=== PATIENT | male | born 1955 | race Caucasian/White ===

== ENCOUNTER → 2017-10-30 08:49 | Outpatient (CLI) | payer OTHER, SELFPAY ==
--- NOTE | 2017-10-30 09:00 | RAD_ITS ---
STUDY: X-RAY - ABDOMEN/PELVIS REASON FOR EXAM: Male, 62 years old. History of kidney stones. TECHNIQUE: Two AP supine views of the abdomen and pelvis. COMPARISON: Comparison is made with prior study dated January 29, 2015. FINDINGS: Normal visualized lung bases. There is an unremarkable bowel gas pattern. There is no demonstrated free abdominal air. The visualized liver, spleen and kidneys are grossly normal in size and morphology. Normal soft tissue structures. Normal visualized osseous structures. RAD/Abdomen Single View IMPRESSION: Normal x-ray examination of the abdomen and pelvis. Electronically Signed: Jaciel Mathis MD at 15:17 EST Tel [phone], Service support ,
== END ==
PROVIDERS: Visit Provider Nurse Practitioner Adult Health
DX: N20.0 Calculus of kidney (principal); R31.9 Hematuria, unspecified
CPT/HCPCS: 74018; 87086

== ENCOUNTER → 2017-11-02 06:48 | Outpatient (CLI) | payer OTHER, SELFPAY ==
--- NOTE | 2017-11-02 06:51 | CT_ITS ---
STUDY: CT ABDOMEN WITHOUT CONTRAST REASON FOR EXAM: Male, 62 years old. Hematuria. RADIATION DOSAGE (If Supplied By Facility): CTDIvol = ( 21.16 ) mGy, DLP = ( 1120.53 ) mGycm TECHNIQUE: Transaxial images were obtained without intravenous contrast, and without oral contrast. Sagittal and coronal images were reconstructed. Individualized dose optimization techniques were used for this CT. COMPARISON: Comparison is made with prior study dated November 22, 2013. FINDINGS: Stable minimally increased markings at the lung bases. The visualized portions of the heart are within normal limits. There is decreased attenuation of the liver consistent with steatosis. Normal gallbladder and extrahepatic biliary system. Normal spleen. Normal pancreas. Normal bilateral adrenal glands. A punctate calcification is seen in the middle pole calyx of the right kidney. Normal left kidney. Normal visualized stomach. Normal small intestine. There are multiple colonic diverticula consistent with diverticulosis. The appendix is visualized and appears normal. Normal abdominal aorta. Normal inferior vena cava. Normal retroperitoneum. Prostatic calcifications. There is a small umbilical hernia containing fat. Small bilateral nodular areas containing fat. Normal osseous structures. CT/Abdomen without IV Contrast IMPRESSION: Fatty infiltration of the liver. Scattered calcifications in the prostate. Punctate calcification in the right kidney. Electronically Signed: Jaciel Mathis MD at 13:56 EST Tel [phone], Service support ,
== END ==
PROVIDERS: Visit Provider Nurse Practitioner Adult Health
DX: R31.9 Hematuria, unspecified (principal); R10.30 Lower abdominal pain, unspecified; Z87.442 Personal history of urinary calculi
CPT/HCPCS: 74150

== ENCOUNTER → 2017-11-29 11:50 | Outpatient (CLI) | payer OTHER, SELFPAY ==
--- NOTE | 2017-11-29 11:51 | CT_ITS ---
STUDY: CT ABDOMEN AND PELVIS WITH CONTRAST REASON FOR EXAM: Male, 62 years old. Right abdominal pain, rectal bleeding RADIATION DOSAGE (If Supplied By Facility): CTDIvol = ( 18.72 ) mGy, DLP = ( 1279.51 ) mGycm TECHNIQUE: Transaxial images were obtained from the lower chest to the upper thighs with oral contrast. 100 ml of Isovue 300 contrast was administered. Sagittal and coronal images were reconstructed. Individualized dose optimization techniques were used for this CT. COMPARISON: November 02, 2017 FINDINGS: There is minimal dependent atelectasis in both lung bases. There is no pleural effusion. The heart is normal in size. There is diffuse decreased density of the liver. The gallbladder and biliary system are unremarkable. The spleen is unremarkable. The pancreas is unremarkable. The adrenal glands are unremarkable. The right kidney is unremarkable. There is no dilatation of the collecting system in the right kidney. The left kidney is unremarkable. There is no dilatation of the collecting system in the left kidney. The stomach is unremarkable. The small bowel is unremarkable. There are diverticula in the distal colon without adjacent stranding. The appendix is visualized and appears normal. There are minimal vascular calcifications. The inferior vena cava is unremarkable. The retroperitoneum is unremarkable. There is no free fluid in the abdomen. The urinary bladder is decompressed. The prostate measures 5.5 cm in the transverse plane. There are coarse calcifications in the prostate. There are small phleboliths scattered in the lower pelvis. There is herniation of fat in the left inguinal canal. There is minimal herniation of fat at the umbilicus. There are mild degenerative changes in the visualized spine. CT/Abdomen/Pelvis WITH Contrast IMPRESSION: There is diverticulosis of the distal colon. There are no findings to suggest acute diverticulitis. There are no abnormal masses seen in the colon given limited evaluation on CT. There is no ascites, free air, inflammation or significant lymphadenopathy. Again seen is fatty infiltration of the liver. The prostate is prominent in size with coarse calcifications. The prostate extends into the inferior aspect of the bladder. The bladder is decompressed. Electronically Signed: Sangita López MD at 15:26 EDT Tel Direct: [phone], Service support ,
== END ==
PROVIDERS: Visit Provider Family Medicine
DX: K62.5 Hemorrhage of anus and rectum (principal)
CPT/HCPCS: 74177; Q9967

== ENCOUNTER 2020-04-28 18:08 | Emergency (ER) | payer MEDICARE, SELFPAY ==
[2020-04-28 18:09] VITALS: BP 130/86; PULSE 92; RESP 13; O2SAT 97
[2020-04-28 18:10] VITALS: BP 130/86; PULSE 94; RESP 17; TEMP 36.7; O2SAT 98; BMI 36.1
--- NOTE | 2020-04-28 18:28 | ED.DCSUM_ITS ---
History of Present Illness Chief Complaint: Allergic Reaction Informant: Patient Onset: Today Narrative: Patient presents via EMS after bee sting. He was mowing the yard and believes he disturbed a hornet's nest in a tree. He was stung on his stomach and behind his left ear. He states he became very itchy. He went inside and took a cold shower which did not prove his symptoms. He took 50 mg of p.o. Benadryl. He felt like his lips were starting to swell so EMS was called. They gave an additional 25 mg of IV Benadryl and an EpiPen. At this time patient feels like he is improving. Bee sting occurred 2 hours prior to my initial evaluation. - Past Medical History (1) Urolithiasis Status: Chronic (2) HTN (hypertension) Status: Chronic Past Medical History - Allergies and Home Meds Allergies/Adverse Reactions: Allergies bee venom protein (honey bee) Allergy (Verified 04/28/20 18:10) Hives Primary Care Physician: Raghav Jarrett [[facility]] - Prior records reviewed: Yes Surgical History: no surgical history Lives: Spouse/ Significant Other Smoking Status: Never smoker - Family History Maternal Additional Family History: None Review of Systems General: Denies: Chills, Fever Eyes: Denies: Visual changes - bilaterally ENT: Denies: Bilateral ear pain Cardiovascular: Denies: Chest pain Respiratory: Denies: Dyspnea, Cough Gastrointestinal: Denies: Abdominal pain, Nausea, Vomiting Musculoskeletal: Denies: Extremity Pain Skin: Reports: Rash Neurological: Denies: Headache Psych: Denies: Depression Hematologic: Denies: Easy bruising, Easy bleeding Allergy: Reports: Uticaria Physical Exam Vital Signs/Narrative: Vital Signs Temp Pulse Resp BP Pulse Ox 04/28/20 18:10 98.0 F 94 17 130/86 H 98 04/28/20 18:09 92 13 130/86 H 97 Inital Vital Signs reviewed: Yes General: Well nourished, Well developed Head: Normocephalic ENT: Moist mucous membranes, - - No lip or tongue edema noted on exam. Posterior pharynx is clear. Neck: Supple Cardiovascular: Regular rate, Regular rhythm Respiratory: No distress, CTA bilaterally Abdomen: Soft, Nontender Back: Nontender Skin: - - Urticaria noted over the trunk and extremities. Neurological: Alert, Oriented x3 Psychological: Normal affect Diagnostic/Tx/Re-eval - Medical Decision Making Patient was given Benadryl and epinephrine with EMS. On arrival here his symptoms were improving. He was given 125 mg of Solu-Medrol IV. Patient is observed here for a total of 2-1/2 hours. Rash continues to improve. He denies any throat tightness or foreign body sensation. At this time patient be discharged to home. He will be given prescriptions for prednisone as well as an EpiPen. They will continue Benadryl at home. ED Disposition - Plan for ED Patient: Disposition: Home or Assisted Living Diagnosis: Bee sting allergy Instructions: ED BEE STING General Allergic Rxn Prescriptions: Prednisone [Deltasone] 40 mg PO DAILY #10 tab Transmission Status: Pending to [facility] Epi Pen (for allergic rxn) 0.3 mg IM X1 PRN #1 syringe PRN Reason: Anaphylaxis Transmission Status: Pending to [facility] Referrals: Raghav Jarrett [[facility]] -
[2020-04-28] MEDS: MethylPREDNISolone 125 MG/2 ML Vial IV (19:04)
[2020-04-28 21:01] VITALS: BP 135/91; PULSE 71; RESP 16; O2SAT 99
== END 2020-04-28 21:02 | disposition home or self-care (01) ==
PROVIDERS: Emergency Provider Emergency Medicine; PCP Family Medicine
DX: T63.441A Toxic effect of venom of bees, accidental (unintentional), initial encounter (principal); L50.9 Urticaria, unspecified; I10 Essential (primary) hypertension
CPT/HCPCS: 96374; 99285; A4216

== ENCOUNTER → 2021-03-22 16:25 | Outpatient (CLI) | payer MEDICARE, SELFPAY ==
[2021-03-22 18:11] LABS: International Normalized Ratio 1.1; Partial Thromboplast Time 23.7 Seconds (24.1-36.2); Prothrombin Time (Protime)PT. 13.3 SECONDS (11.7-14.9)
[2021-03-25 11:06] LABS: Carbohydrate AG 19-9 4987 U/mL (0-35); Carcinoembryonic Antigen 32.2 ng/mL (0.0-4.7)
== END ==
PROVIDERS: PCP Family Medicine; Referring Provider Internal Medicine Gastroenterology; Visit Provider Internal Medicine Gastroenterology
DX: K86.9 Disease of pancreas, unspecified (principal); R17 Unspecified jaundice
CPT/HCPCS: 36415; 82378; 85610; 85730; 86301

== ENCOUNTER → 2022-09-06 | Outpatient (CLI) | payer MEDICARE, SELFPAY ==
--- NOTE | 2022-09-06 11:00 | PET_ITS ---
EXAMINATION: FDG PET-CT INDICATIONS: A 66-year-old male with a history of pancreatic carcinoma presenting for restaging examination. COMPARISON EXAMINATION: None available TECHNIQUE: Following the intravenous administration of 13.38 mCi of F-18 deoxyglucose via the left antecubital fossa, multiplanar image acquisitions of the head, neck, chest, abdomen and pelvis to level of mid-thigh, lower extremities obtained at one hour post radiopharmaceutical administration contemporaneously interpreted with the current CT of the head, neck, chest, abdomen and pelvis to level of mid-thigh, lower extremities dated 09/06/22 via coregistration reveal: SERUM GLUCOSE LEVEL: 132 mg/dl. HEIGHT: 66 inches. WEIGHT: 187 lbs. FINDINGS: Head/Neck: There is no evidence of abnormal increased glucose metabolism in the pharyngeal mucosal space, parapharyngeal space, bilateral-lateral and anterior neck, hypopharynx and distribution of the laryngeal structures. The visualized portion of the cerebral cortical-subcortical structures demonstrate symmetric and preserved glucose metabolism. CHEST: Prominent tracer concentration is defined in the descending thoracic aorta consistent with activated leukocytes associated with atherosclerotic plaque formation. Pertinent chest CT findings are as follows. There is visualization of the Mabodbqk-Qalu-A-Cath. There is atherosclerotic calcification defined in the thoracic aorta without evidence of dilatation-aneurysm formation. Coronary arterial calcification is observed. Calcified and noncalcified mediastinal thoracic perihilar soft tissue is nonglucose avid. Bilateral subcentimeter axillary soft tissue densities are ametabolic. There are no parenchymal densities-nodules defined in the right and left hemithorax with quantitatively significant increased FDG uptake. Abdomen/Pelvis: Normal physiologic distribution of the radiopharmaceutical is apparent in the hepatic and splenic parenchyma, both renal units, bladder and visualized intestinal tract. Diffuse radiopharmaceutical concentration is noted in all four quadrants of the abdomen and pelvis. Pertinent abdomen and pelvis CT findings are as follows. Multiple surgical clips and postsurgical changes are noted in the right upper abdomen consistent with previous Whipple procedure. The gallbladder is surgically absent. There is atherosclerotic calcification defined in the abdominal aorta without evidence of dilatation-aneurysm formation. Abdominal-pelvic arterial calcification is observed. Fat containing bilateral inguinal hernias are noted. Calcification is noted in the base of the prostate gland to the left and right of midline. Bilateral inguinal soft tissue densities are nonglucose avid. Skeletal: Facilitated uptake is noted in the sternoclavicular compartment of the left shoulder, the fifth lumbar vertebra associated with facet joints to the right and left of the midline commensurate with degenerative arthrosis. Degenerative changes are noted in the cervical, thoracic and lumbar spine. There is no visualized sclerotic-lytic changes manifest on review of the appendicular-axial skeletal structures. PET/PET/CT Tumor Base -Thigh Subs IMPRESSION: 1. NEGATIVE EXAMINATION. There are no definitive quantitative scintigraphic evidence of recurrent-viable neoplasm. Electronic Signature Lalit Montoya D.O. Accurate Quantification of SUVs for this report are calculated using the exclusive [employer]. (U.S. Patent No. [phone] B2 [phone] [place] patent [phone]). Standardization and correction of the FDG SUV metric via [employer] technology allow for vendor non-specific objective quantitative examination comparison and optimization of the sensitivity and specificity of the FDG PET-CT examination. Electronically Signed: Lalit Montoya, at 13:21 EST ,
== END | disposition home or self-care (01) ==
LOC: ONC 10:57
PROVIDERS: PCP Family Medicine; Referring Provider Internal Medicine Hematology & Oncology; Visit Provider Internal Medicine Hematology & Oncology
DX: C25.0 Malignant neoplasm of head of pancreas (principal); R79.89 Other specified abnormal findings of blood chemistry
CPT/HCPCS: 78815; A9552

== ENCOUNTER → 2023-07-03 | Outpatient (CLI) | payer MEDICARE, SELFPAY ==
--- NOTE | 2023-07-02 | IMM_PTH ---
PATIENT: TESSA JONES LOC: [facility] U#:[id number] AGE/SX: 67/M ROOM: RE07/03/[address]: Dr. John Stevenson MD : 1955 BED: DIS: 07/03/2023 SPEC #: [id number] RECD: 07/04/23 14:06 STATUS: APOLONIA REQ #: [id number] RAJIV: 07/02/23 00:[address]: John Stevenson DEPT: IMMUNOHISTOCHEMISTRY RECD BY: Ana Monterroso ENTERED: 07/04/23 14:08 SP TYPE: IMMUNO OTHR DR: Dr. Felix Hernandez DO Tissues: Shoulder, NOS Procedures: CK20 (add) CK7 (add) CK8 (add) P53 (add) Pankeratin (initial) P40 (add) PHYSICIAN & INSTITUTION [place] [id number] SPECIMEN INFORMATION: Tissue Source: Left supraclavicular mass Clinical Info: Left supraclavicular mass, history of pancreatic cancer Specimen Number: [id number] CPT code: 78922, 24357 x5 METHODOLOGY: Deparaffinized sections of prefer/formalin-fixed tissue or PAP/DQ stained slides are incubated with monoclonal/polyclonal antibodies/oligonucleotide probes. Localization is made via biotin free immunoperoxidase method. Appropriate controls are performed and reacted as expected. Results on target cell population are indicated in the following table: RESULTS: ANTIBODY / CLONE RESULT AE1-3 (AE1/AE3/PCK26) positive CK7 (OV-TL12/30) positive CK8 (94hromZ46) positive P40 (BC28) negative P53 (DO-7) negative, null pattern CK20 (KS20.8) negative These tests were developed and their performance characteristics determined by [facility]. They may not have been cleared or approved by the U.S. Food and Drug Administration. The FDA has determined that such clearance or approval is not necessary. The above immunohistochemical/dualISH markers are ordered and reviewed by the Pathologist. INTERPRETATION: Left supraclavicular mass, fine needle aspiration: Rare atypical epithelioid cells present. See comment. AM:jaiden 07/05/2023 Comment: The paucity of diagnostic material precludes further classification. Clinical correlation is necessary.
--- NOTE | 2023-07-02 | ASPOS_PTH ---
PATIENT: TESSA JONES LOC: [facility] U#:[id number] AGE/SX: 67/M ROOM: RE07/03/[address]: Dr. John Stevenson MD : 1955 BED: DIS: 07/03/2023 SPEC #: [id number] RECD: 07/03/23 10:51 STATUS: APOLONIA RETiffany #: [id number] RAJIV: 07/02/23 00:[address]: John Stevenson DEPT: CYTOLOGY RECD BY: Natasha Leonard ENTERED: 07/03/23 10:52 SP TYPE: ASP HERE OTHR DR: Dr. Felix Hernandez DO Tissues: Supraclavicular region of neck Procedures: Surgery Specimen Level IV Cytology Other Fine Needle Asp on Site HEADER OPERATION: Fine needle aspiration left supraclavicular mass PRE-OP DIAGNOSIS: Left supraclavicular mass, history of pancreatic cancer TISSUE SUBMITTED: Left supraclavicular mass DIAGNOSIS CYTOLOGY Fine needle aspiration, left supraclavicular mass (smears and cell block): Positive for malignant cells consistent with non-small cell carcinoma, adenocarcinoma. See comment. AM:jaiden 07/06/2023 COMMENT A fine needle aspiration was performed and the specimen is evaluated at the time of FNA by Dr. Zepeda. Immediate Evaluation = Positive for malignant cells. Non-small cell carcinoma, adenocarcinoma. Immunohistochemistry ([id number]) supports the above diagnosis. The cellular material is scant and insufficient for further classification. Case has been reviewed in consultation with Dr. Renae who concurs with the above diagnosis. IDC:SJ CYTOLOGY STUDY Slides are reviewed. CYTOLOGY GROSS Received is 0.25 ml of reddish fluid labeled with the patient's name, and designated left supraclavicular mass. Six imprints and three paps are made from the submitted fluid and the rest is added to CytoLyt for cell block preparation. Submitted for cytology study. / AM:jaiden 07/03/2023 TC:0 CPT: 64079, 51934, 92499, 80912
== END | disposition home or self-care (01) ==
PROVIDERS: PCP Student in an Organized Health Care Education/Training Program; Referring Provider Otolaryngology; Visit Provider Otolaryngology
DX: C44.49 Other specified malignant neoplasm of skin of scalp and neck (principal)
CPT/HCPCS: 10021; 88161; 88305; 88341; 88342

== ENCOUNTER 2023-07-23 11:03 | Day surgery (SDC) | payer MEDICARE, SELFPAY ==
--- NOTE | 2023-07-17 08:20 | EKG12_ITS ---
Test Reason : PREOP Blood Pressure : / mmHG Vent. Rate : 071 BPM Atrial Rate : 071 BPM P-R Int : 146 ms QRS Dur : 084 ms QT Int : 406 ms P-R-T Axes : 010 -03 055 degrees QTc Int : 441 ms Normal sinus rhythm Normal ECG Confirmed by LUIS RODRIGUEZ, LUANN ([id number]), managing editor WAYLON ALMONTE ([id number]) on 07/25/2023 10:23:11 AM Referred By: John Stevenson Confirmed By:LUANN SMITH MD
[2023-07-17 09:16] LABS: Hematocrit 51.4 % (40-54); Mean Corp Hgb Conc 31.1 g/dL (32-36); Mean Corpuscular Hgb 28.7 pg (27.0-32.0); Mean Corpuscular Volume 92.1 fL (80-94); Mean Platelet Vol. 9.3 fl (6.2-12.0); Platelet Count 226 K/mm3 (150-450); RBC Distribution Width CV 13.6 % (11.6-14.6); RBC Distribution Width SD 46.6 fl (35.1-43.9); Red Blood Count 5.58 M/mm3 (4.6-6.2); White Blood Count 7.7 K/mm3 (4.4-11.0)
[2023-07-17 09:37] LABS: Anion Gap 4 (5-15); BUN 19 mg/dL (7-18); BUN/Creat Ratio 19.8 RATIO (10-20); Calcium,Total 8.9 mg/dL (8.5-10.1); Chloride 108 mmol/L (98-107); Creatinine, Serum 0.96 mg/dL (0.70-1.30); EST Glomerular Filtration Rate 82 mL/min (>60); Est Glom Filt Rate - Afr Amer 99 mL/min (>60); Glucose 137 mg/dL (74-106); Potassium 3.9 mmol/L (3.5-5.1); Sodium Level 141 mmol/L (136-145)
--- NOTE | 2023-07-23 | IMM_PTH ---
PATIENT: TESSA JONES LOC: [facility] [place] U#:[id number] AGE/SX: 67/M ROOM: RE07/23/[address]: Dr. John Stevenson MD : 1955 BED: DIS: 07/23/2023 SPEC #: [id number] RECD: 07/24/23 15:01 STATUS: APOLONIA REQ #: [id number] RAJIV: 07/23/23 00:[address]: John Stevenson DEPT: IMMUNOHISTOCHEMISTRY RECD BY: Ana Monterroso ENTERED: 07/24/23 15:03 SP TYPE: IMMUNO OTHR DR: Dr. Felix Hernandez, DO Tissues: Neck, NOS Procedures: RCC (add) NAPSIN A (add) CEA (add) CK19 (add) CK20 (add) CK5-6 (add) CK7 (add) CK8 (add) CLAIR (add) HEP PAR (add) KI-67 (add) P53 (add) TTF1 (add) Vimentin (add) 34BE12 (add) Pankeratin (initial) P40 (add) CDX2 (add) PSAP (add) S-100 (add) PHYSICIAN & [place] [address] SPECIMEN INFORMATION: Tissue Source: Left neck mass Clinical Info: Left neck mass Specimen Number: [id number] CPT code: 36578, 78479 x19 METHODOLOGY: Deparaffinized sections of prefer/formalin-fixed tissue or PAP/DQ stained slides are incubated with monoclonal/polyclonal antibodies/oligonucleotide probes. Localization is made via biotin free immunoperoxidase method. Appropriate controls are performed and reacted as expected. Results on target cell population are indicated in the following table: RESULTS: ANTIBODY / CLONE RESULT AE1-3 (AE1/AE3/PCK26) positive CK7 (OV-TL12/30) positive CK8 (10mgvaF57) positive CK20 (KS20.8) positive, rare CDX2 (UVP4345L) negative Vimentin (V9) negative 34BE12 (34BE12) positive S-100 (4C4.9) negative CK19 (A53-B/A2.26) positive TTF-1 (8G7G3/1) negative Napsin A (Rabbit Polyclonal) negative HepPar (OCh1E5) negative RCC (PN-15) negative PSAP (PASE/4LJ) negative CK5-6 (D5 & 1684) negative P40 (BC28) negative CLAIR (E29) positive CEA (11-7/TF-3HB-1) positive P53 (DO-7) negative, null pattern Ki-67 (30-9) positive, 10% These tests were developed and their performance characteristics determined by [facility]. They may not have been cleared or approved by the U.S. Food and Drug Administration. The FDA has determined that such clearance or approval is not necessary. The above immunohistochemical/dualISH markers are ordered and reviewed by the Pathologist. INTERPRETATION: Left neck mass, biopsy: Metastatic adenocarcinoma. See comment. AM:jaiden 07/25/2023 Comment: The IHC profile favors an upper GI primary including the pancreatobiliary system.
--- NOTE | 2023-07-23 | MASS_PTH ---
PATIENT: [place]ESSA [place] [facility] [id number] AGE/SX: 67/M ROOM: RE07/23/[address]: Dr. John Stevenson MD : 1955 BED: DIS: 07/23/2023 SPEC #: [id number] RECD: 07/23/23 15:07 STATUS: APOLONIA NASH #: [id number] RAJIV: 07/23/23 00:[address]: John Stevenson DEPT: SURGICAL PATHOLOGY RECD BY: Jonathon Monterroso ENTERED: 07/23/23 15:09 SP TYPE: Mass OTHR DR: Dr. Felix Hernandez, DO Tissues: Neck, NOS Procedures: Special Stain Group II Surgery Specimen Level IV Imprint (control) HEADER OPERATION: Biopsy, mass, open neck biopsy PRE-OP DIAGNOSIS: Left neck mass TISSUE SUBMITTED: Left neck mass, sent fresh in normal saline MICROSCOPIC DIAGNOSIS Left neck mass, biopsy: Metastatic adenocarcinoma. NOTE: The IHC study favors an upper GI primary including the pancreatobiliary system. AM:jaiden 07/24/2023 COMMENT Two touch preps are prepared of the fresh tissue at the time of the procedure by Dr. Zepeda. Immediate Evaluation = Positive for malignant cells, non-small cell carcinoma. Immunohistochemistry ([id number]) supports the above diagnosis. Reference is made to the patients' previous fine needle aspiration of this mass and reported as non-small cell carcinoma, adenocarcinoma ([id number]). MICROSCOPIC DESCRIPTION Slides are reviewed. There is focal dystrophic ossification in the biopsy. GROSS DESCRIPTION Received fresh labeled with the patient's name is a specimen designated left neck mass. The specimen consists of an ovoid fragment of pink tissue measuring 1.2 x 1.0 x 0.7 cm. Human Resources Compensation Analyst portions are held for flow cytometry analysis. Human Resources Compensation Analyst touch smears (two) are prepared. The remainder of the specimen is bisected and totally submitted in one cassette. Tissue held for flow is submitted for permanent in block 2. / AM:jaiden 07/23/2023 TC:0 CPT: 98469, 86576, 29365
[2023-07-23] MEDS: Lactated Ringers 1,000 ML 15 ML IV (11:15)
[2023-07-23 11:29] VITALS: BP 163/94; PULSE 59; RESP 16; TEMP 36.2; O2SAT 100; BMI 30.2
[2023-07-23 11:52] LABS: Bedside Glucose 86 mg/dL (74-106)
--- NOTE | 2023-07-23 13:28 | PCM.OPRPT ---
Report of Operation Date of Procedure: 07/23/23 Pre-Operative Diagnosis: left neck mass Post-Operative Diagnosis: same Surgery/Procedure Performed:: Excision neck mass Surgeon: John Stevenson Type of Anesthesia: General Anesthesiologist: Mk Tello Estimated Blood Loss (mL): minimal Description of Procedure: The patient was taken to the operating room on 07/23/23. He was placed in supine position on the operating table. He was given sufficient general endotracheal anesthesia. The left neck was prepped and draped sterilely. 1% lidocaine with epinephrine was injected into the skin overlying the intended incision. The incision was made with a 15 blade. This was carried down through the skin. Hemostasis was achieved with monopolar cautery. A vessel was clamped and ligated with 3-0 silk. Blunt and sharp dissection was carried out until the mass was identified. The mass was then circumferentially dissected away from the surrounding tissue with sharp dissection. Bipolar was used for hemostasis. The mass was removed and sent for lymph node protocol. I then irrigated the incision with saline. Again hemostasis was ensured with bipolar cautery. The platysma was closed with 4-0 vicryl. A edgar was placed deep to the platysma. It was sewn to the skin with 4-0 vicryl. The skin was closed with 4-0 Vicryl subcutaneous as well as 6-0 Nylon. A pressure dressing was applied. The patient was then awoken and brought to recovery room in stable condition blood loss minimal, replacement none. Sponge, needle, instrument count were correct at the end of the procedure.
[2023-07-23] MEDS: Lidocaine 1% /Epi 1:100 (20ml) 20 ML Vial (13:45)
--- NOTE | 2023-07-23 14:46 | PCM.DC.SUM ---
Providers Primary Care Physician: Dr. Felix Hernandez DO Reason For Visit: Biopsy, Mass, OPEN NECK BIOPSY Medications at Discharge Home Medications epinephrine 0.3 mg/0.3 mL injection, auto-injector 0.3 mg (0.3 mL) IM X1 PRN Anaphylaxis ##1 04/28/20 omega 3-dha 60 mg-epa 90 mg-fish oil 500 mg capsule, delayed release 2 cap PO DAILY 04/28/20 calcium carbonate 600 mg calcium (1,500 mg) tablet 600 mg PO BID 07/16/23 insulin glargine 100 unit/mL (3 mL) subcutaneous pen (Basaglar KwikPen U-100 Insulin) 10 unit subcut QHS 07/16/23 odivxk-yzjbkivm-mlekuxh 36,000-114,000-180,000 unit capsule,delay rel (Creon) 2 cap PO TID 07/16/23 multivitamin 2 tab PO DAILY 07/16/23 zinc 25 mg tablet 25 mg PO QODAY 07/16/23 Weight / BMI Weight Weight: 85 kg Body Mass Index (BMI) 30.2 ABG / Lab / Microbiology Data 07/17/23 08:48 07/17/23 08:48 Laboratory: Laboratory Results - last 24 hr 07/23/23 11:33: POC Glucose 86 D/C Instructions Discharge Diet: No restrictions Additional Instructions: Keep dressing clean and dry. Dr. Stevenson will remove this tomorrow. call for an appointment Please Follow Up With: John Stevenson MD When: tomorrow Meaningful Use Info Meaningful Use Diagnoses (Choose all that apply): None applicable Discharge Plan Admission Attending Provider: John Stevenson Primary Care Provider: Felix Hernandez Discharge Orders/Prescriptions Prescriptions: No Action omega 7-olq-qav-fish oil 500 MG capsule,delayed release(DR/EC) 2 cap PO DAILY epinephrine 0.3 MG syringe 0.3 mg IM X1 PRN (Reason: Anaphylaxis) Qty: 1 0RF Creon 36,000-114,000- 180,000 unit capsule,delayed release(DR/EC) 2 cap PO TID Rx Instructions: administer with meals and/or snacks insulin glargine [Basaglar KwikPen U-100 Insulin] 100 unit/mL (3 mL) insulin pen 10 unit SUBCUT QHS Patient Comments: Inject 10 units subcutaneously daily. calcium carbonate 600 mg calcium (1,500 mg) tablet 600 mg PO BID Patient Comments: TAKE 1 TABLET BY MOUTH TWICE DAILY multivitamin Tablet 2 tab PO DAILY zinc 25 mg tablet 25 mg PO QODAY Other Ambulatory Orders: 12 Lead EKG (Routine) Timeframe: [id number] Location: None Selected Ordered By: Dr. John Stevenson Referrals / Follow Up: Gerald Forte MD [Non-Staff] - Disposition Disposition (needs filled in before D/C Order can be placed): Home, Self Care
[2023-07-23 14:51] VITALS: BP 129/86; BP 163/94; PULSE 72; RESP 16; TEMP 36.3; O2SAT 93
[2023-07-23 15:00] VITALS: BP 123/88; BP 163/94; PULSE 73; RESP 16; O2SAT 92
[2023-07-23 15:16] VITALS: BP 121/89; BP 163/94; PULSE 66; RESP 16; TEMP 36.1; O2SAT 93
[2023-07-23 15:38] LABS: Bedside Glucose 147 mg/dL (74-106)
[2023-07-23] MEDS: 0.9% Saline Lock 10 ML Syringe IV (15:55)
[2023-07-23 15:57] VITALS: BP 163/94
== END 2023-07-23 15:59 | disposition home or self-care (01) ==
LOC: SDC 11:09 → AC 11:10
PROVIDERS: PCP Student in an Organized Health Care Education/Training Program; Referring Provider Otolaryngology; Visit Provider Otolaryngology
PROC: (CPT 21556; principal; 2023-07-23 12:30)
DX: C79.89 Secondary malignant neoplasm of other specified sites (principal); Z79.4 Long term (current) use of insulin; Z85.07 Personal history of malignant neoplasm of pancreas
CPT/HCPCS: 21556; 00320; 36415; 80048; 82962; 85027; 88305; 88313; 88341; 88342; 93005; J7120; A4216; J2405